=== PATIENT | female | born 1980 | race Caucasian/White ===

== ENCOUNTER 2022-09-20 14:39 | Outpatient (CLI) | payer OTHER ==
--- NOTE | 2022-09-20 16:41 | SLEEP CARE CONSULTATION ---
Information from patient questionnaire entered by Shadi Roman. I have reviewed and concur with the information entered by Shadi Roman. This document represents the service I personally performed and the decisions made by me, Juan Jose Vora MD, [facility]. History of Present Illness Service Date and Time: 09/20/2022 1439 Reason for Visit: New patient Chief Complaint: reports: Insomnia, Snoring, Frequent awakenings at night Usual bedtime: 1130PM Time it takes to fall asleep: 30-90MIN Snores at night: Yes Observed to quit breathing while asleep: No Sleeps alone due to snoring: Yes Number of times waking at night: 2-3 Reasons for waking at night: reports: Snoring, Bathroom, Other (UNKNOWN) Toss, Turn, or Twitch while sleeping: Yes Recalls having dreams: Yes Usually gets out of bed at: 7-8AM Feels refreshed in the morning: Yes Morning headache: No Sleepy or fatigued during the day: No Ever fallen asleep while driving: No Takes day naps: No Dreams during day naps: No Prior sleep studies: No Additional HPI information: I have the pleasure of seeing Ms. Campbell today regarding the possibility of her having obstructive sleep apnea. As you know, she is a 41-year-old lady who complains of insomnia almost all her adult life. She has difficulty falling asleep at the beginning of the night and also with waking up during the night. Her medications has been changed many times. Presently, she is taking doxepin and amitriptyline. She said they do not help much. She added melatonin on her own. She said temazepam worked best in the past. She has alprazolam that she takes occasionally for anxiety but not for insomnia. One reason she comes in today is because she started snoring very loudly, so loud that her has to sleep in a separate bedroom. The patient tells me that she normally goes to bed around 11:30 pm, and it takes her approximately 30 - 90 minutes to fall asleep. She has never been observed to stop breathing in her sleep. Her has to sleep in a separate room. She can recall waking up on the average of 2 - 3 times during the night. Most of the time she wakes up because of having to use the bathroom and unknown reason. She has awakened occasionally because of her own snoring, but not choking, or having to gasp for air. There is a lot of tossing and turning in her sleep. There is occasional somniloquy (sleep talking) but no somnambulism (sleep walking). Generally, there is no recollection of dreams. In the morning she usually gets up out of the bed around 7 - 8 a.m. not feeling refreshed nor rested. When left up to her, she wakes up at 9 am. She usually does not have a morning headache. During the day she does not feel sleepy and fatigued. She drinks a lot of coffee in the morning. Her score on Maxwell Sleepiness Scale is 0 out of 24. She never has fallen asleep while driving nor has had any accident due to sleepiness. She usually does not take naps during the day. She denies symptoms of restless leg syndrome. She denies having impaired concentration during the day. 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 Patient is and lives in [place]. Have you smoked in the past 12 months: No Alcohol use: Yes Caffeine use: Yes Caffeine amount and frequency: SEVERAL CUPS TRY AND STOP BY NOON Family History Family history of sleep disordered breathing: Yes Family Hx Sleep Apnea: Mother: Snoring, Sleep apnea - Treated, Father: Snoring, Sleep apnea - Treated Allergies and Home Medications Known drug allergies: Yes ([facility]) Drug allergies reviewed: Yes Home medication list reviewed: Yes Review of Systems Weight loss over past 5 years: 6 Cardiovascular: denies: high blood pressure, palpitations, chest pain, irregular heart rate or pulse, leg or foot swelling, have to sleep sitting up, other Respiratory: denies: shortness of breath, wheeze, sputum production, chronic cough, other Gastrointestinal: denies: heartburn, difficulty swallowing, nausea, vomitting, diarrhea, abdominal pain, other Urinary: denies: incontinence, frequency, urgency, impotence, other Neurological: denies: headaches, seizure, head trauma, disorientation, speech dysfunction, gait or balance problems, fainting or unconsciousness, other Psychiatric: reports: anxiety Ear/Nose/Throat: reports: nasal congestion, sinus problems Endocrine: denies: thyroid disease, history of goiter, sluggishness, too hot or cold, excessive thirst, increased appetite, increased urination, unexplained weakness, other Musculoskeletal: denies: joint pain, neck pain, back pain, joint swelling, muscle pain or cramping, mobility problems, other Immunologic: reports: sneezing Physical Exam Vital signs obtained and entered by: SHADI Justice MA Blood Pressure: 98/58 (LEFT ARM) Cuff size: regular Heart Rate: 75 O2 Saturation: 98 Height: 5 ft 5 in Weight: 187 lb 12.8 oz Body Mass Index: 31.2 BMI Classification: Obese Neck circumference: 14.5 Mood/affect: Normal HEENT: No craniofacial malformation Nostrils: patent to airflow Turbinates: normal Septum: midline Mouth and throat: narrow oropharynx Soft palate: long Hard palate: normal Uvula: normal Uvula visualization: 50% Mallampati Class II Tongue: normal in size Tonsils: small Chin and jaw: normal size and position Neck: normal w/o lymphadenopathy or thyromegaly Heart: regular rate and rhythm Lungs: clear bilaterally Extremities: no edema or clubbing Neurologic: intact Impression and Plan IMPRESSION: 1. Suspected sleep apnea, as evident by history of loud and irregular snoring, frequent awakenings during the night, and unrefreshed sleep. Narrow oropharynx and obesity are common predisposing factors for obstructive sleep apnea-hypopnea syndrome. I recommend proceeding to polysomnography to confirm the diagnosis and to assess severity. I informed the patient of what the sleep studies involve and after some discussion, she agreed to proceed. However, because her insurance is [employer] which generally does not authorize the standard in-laboratory polysomnography, a home sleep apnea test (HSAT) will be ordered. 2. 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 She complains of not being able to fall asleep when everybody else goes to sleep but then gets up significantly later than them. To help her fall asleep at the beginning of the night, I instructed her to keep her wakeup time at 7 am every day. She should set her alarm at that time. Plan: 1. Schedule a home sleep apnea test (HSAT) 2. Maintain a regular wake up time and spend no more than 7.5 hours in bed at night. Avoid naps. 3. Continue with all her meds for now. 4. Return for a follow-up after the test. Counseling Topics: Weight control Follow up with Sleep Care in: 1-2 months Plan: in-lab pSG Visit Type: In Office Time Spent with Patient (minutes): 15 Provider Statement: I spent 100% of the Face to Face Visit with the patient with greater than 50% spent counseling the patient and coordination of care.
[2022-09-20 16:44] VITALS: BP 98/58
== END 2022-09-20 14:40 | disposition home or self-care (01) ==
LOC: SC 14:39
PROVIDERS: ATTEND Internal Medicine Pulmonary Disease
DX: R53.83 Other fatigue (principal); G47.8 Other sleep disorders; R06.83 Snoring; E66.9 Obesity, unspecified; Z68.31 Body mass index [BMI] 31.0-31.9, adult
CPT/HCPCS: 99202; 99212

== ENCOUNTER 2022-11-18 12:50 | Outpatient (CLI) | payer OTHER | END 2022-11-18 12:51 | disposition home or self-care (01) | LOC: SC 12:50 | PROVIDERS: ATTEND Internal Medicine Pulmonary Disease | DX: R53.83 Other fatigue (principal); G47.8 Other sleep disorders; R06.83 Snoring; E66.9 Obesity, unspecified; Z68.31 Body mass index [BMI] 31.0-31.9, adult | CPT/HCPCS: 95806 ==

== ENCOUNTER 2022-12-20 15:00 | Outpatient (CLI) | payer OTHER ==
--- NOTE | 2022-12-22 09:09 | SLEEP CARE CONSULTATION ---
Information from patient questionnaire entered by Shadi Roman. I have reviewed and concur with the information entered by Shadi Roman. This document represents the service I personally performed and the decisions made by me, Juan Jose Vora MD, [facility]. History of Present Illness Service Date and Time: 12/20/2022 1500 Initial [place] Sleepiness Scale score: 0 (09/20/22) Current [place] Sleepiness Scale score: 2 (12/20/22) Additional HPI information: Ms. Campbell was seen via videotelemed to go over her home sleep apnea test (HSAT) recently performed. The test showed No significant sleep disordered breathing or hypoxemia. She slept on her back about two-third of the night. She continues to complain of sleep onset insomnia and snore. Sleep Study - Results Type of Sleep Study: Home sleep study (COMPLETED ON 11/18/22) Prior sleep studies: No Allergies and Home Medications Drug allergies reviewed: Yes Home medication list reviewed: Yes Allergy and home medication list: Allergies Penicillins Allergy (Verified 12/17/22 16:40) Review of Systems Review of systems same as previous: Yes Physical Exam Vital signs obtained and entered by: SHADI Justice MA Height: 5 ft 5 in (PER PT) Weight: 180 lb (PER PT) Body Mass Index: 29.9 BMI Classification: Overweight Impression and Plan IMPRESSION: 1. Primary Snore (ICD-10 R06.83), light to loud, but no significant sleep disordered breathing except when the patient slept supine. The patient is recommended to avoid sleeping supine. Treatment for snore includes oral appliance therapy and upper airway surgery. 2. Insomnia life long, probably due to mild delayed sleep phase syndrome. She complains of not being able to fall asleep when everybody else goes to sleep but then gets up significantly later than them. To help her fall asleep at the beginning of the night, I instructed her to keep her wakeup time no later than 7 am every day, especially on her days off. She should set her alarm at that time. PLAN: 1. Maintain a regular wake up time and spend no more than 8 hours in bed at night. Avoid naps. 2. Return for a follow up on as needed basis. Follow up with Sleep Care in: as needed Visit Type: Telehealth Video Video Type: [facility] Patient agrees and consents to this telehealth visit type: Yes Patient agrees to have their insurance billed: Yes Time Spent with Patient (minutes): 15 Provider Statement: I spent 100% of the Telehealth Video Call with the patient with greater than 50% spent counseling the patient and coordination of care.
== END 2022-12-20 15:01 | disposition home or self-care (01) ==
LOC: SC 15:00
PROVIDERS: ATTEND Internal Medicine Pulmonary Disease
DX: R06.83 Snoring (principal); G47.00 Insomnia, unspecified; E66.3 Overweight; Z68.29 Body mass index [BMI] 29.0-29.9, adult

== ENCOUNTER 2024-01-16 10:23 | Outpatient (CLI) | payer BC | END 2024-01-16 23:59 | disposition critical access hospital (66) | LOC: EMS 10:23 | DX: R20.2 Paresthesia of skin (principal); H53.8 Other visual disturbances; F41.9 Anxiety disorder, unspecified | CPT/HCPCS: A0425; A0429 ==

== ENCOUNTER 2024-01-16 10:39 | Emergency (ER) | payer BC, OTHER ==
--- NOTE | 2024-01-16 10:52 | ED Physician Documentation ---
History of Present Illness - Stated complaint Stated Complaint: BILAT ARM NUMBNESS - Chief complaint Chief Complaint: General - History obtained from History obtained from: Patient, Family, EMS - Additonal information Additional information: After her trip to [facility] last April she developed vertigo. She has severe vertigo whenever she flies and after that trip the vertigo was persistent and she ended up going to the ENT several times and having a left TM tube placed which was subsequently removed because it did not help. She also had a normal MRI of her brain. Tuesday she had up episode where she was standing up and reached over her head and she feels like she blacked out but did not lose postural tone and awoke still in a standing position in the same place. Since then she has had "brain fog" and today developed a sensation of not getting enough oxygen and extremity numbness in all [address] to work. Subsequently she developed blurry tunnel vision. Now she feels better. No associated headache, chest pain. She does not think this is anxiety. She does take an antidepressant, but has been compliant without missed doses. No possibility of . PD PAST MEDICAL HISTORY - Past Medical History Past Medical History: Yes Psych: Depression, Anxiety - Present Medications Home Medications: Ambulatory Orders Medication Instructions Recorded Confirmed ALPRAZolam [Alprazolam] 0.5 mg ORAL Q8HR PRN 09/20/22 01/16/24 Amitriptyline [Elavil] 25 mg ORAL HS 09/20/22 01/16/24 Fluoxetine HCl [Prozac] 20 mg ORAL DAILY 09/20/22 01/16/24 Melatonin 5 mg ORAL HS 09/20/22 01/16/24 Multivitamin 1 tab ORAL DAILY 09/20/22 01/16/24 Elderberry Fruit [Elderberry] 350 mg PO DAILY 01/16/24 01/16/24 Magnesium Oxide 400 mg PO DAILY 01/16/24 01/16/24 Tirzepatide [Zepbound] 50 mg SQ Q7D 01/16/24 01/16/24 - Allergies Allergies/Adverse Reactions: Allergies Allergy/AdvReac Type Severity Reaction Status Date / Time Penicillins Allergy Unknown Verified 01/16/24 10:43 - Social History Does the pt smoke?: No Smoking Status: Never smoker PD ED PE NORMAL - Vitals Vital signs reviewed: Yes - General General: Alert and oriented X 3, No acute distress - HEENT HEENT: PERRL, EOMI, Pharynx benign, Other (Normal TMs, no PE tube in place.) - Neck Neck: Supple, no meningeal sign, No bony TTP - Cardiac Cardiac: RRR, No murmur - Respiratory Respiratory: No respiratory distress, Clear bilaterally - Abdomen Abdomen: Non tender - Neuro Neuro: Alert and oriented X 3, 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 Relevant findings are: Rate: Rate (enter#) (71) Rhythm: NSR [place]: Normal Intervals: Normal GA QRS: Normal Ischemia: Normal ST segments - Labs Labs: Laboratory Tests 01/16/24 01/16/24 01/16/24 10:39 10:58 10:58 WBC 3.7 L RBC 4.35 Hgb 12.9 Hct 39.3 MCV 90.3 MCH 29.7 MCHC 32.8 RDW 11.8 L Plt Count 208 MPV 11.4 H Neut # (Auto) 2.1 Lymph # (Auto) 1.3 L Carter # (Auto) 0.2 Eos # (Auto) 0.1 Baso # (Auto) 0.0 Absolute Nucleated RBC 0.00 Nucleated RBC % 0.0 VBG pH VBG pCO2 VBG pO2 VBG HCO3 VBG Total CO2 VBG O2 Saturation VBG Base Excess Sodium 137 Potassium 4.0 Chloride 104 Carbon Dioxide 27 Anion Gap 6.0 BUN 11 Creatinine 0.8 Estimated GFR (MDRD) 78 L Glucose 92 Calcium 9.6 Magnesium 1.7 Total Bilirubin 0.6 AST 23 ALT 29 Alkaline Phosphatase 36 L Total Protein 6.8 Albumin 4.5 Globulin 2.3 Albumin/Globulin Ratio 2.0 Urine Color YELLOW Urine Clarity CLEAR Urine pH 6.5 Ur Specific [place] <=1.005 Urine Protein NEGATIVE Urine Glucose (UA) NEGATIVE Urine Ketones NEGATIVE Urine Occult Blood NEGATIVE Urine Nitrite NEGATIVE Urine Bilirubin NEGATIVE Urine Urobilinogen 0.2 (NORMAL) Ur Leukocyte Esterase NEGATIVE Ur Microscopic Review NOT INDICATED Urine Culture Comments NOT INDICATED Urine HCG, Qual NEGATIVE Nasal Adenovirus (PCR) Nasal B. parapertussis DNA (PCR) Nasal Coronavir 229E PCR Nasal Coronavir HKU1 PCR Nasal Coronavir NL63 PCR Nasal Coronavir OC43 PCR Nasal Enterovir/Rhinovir PCR Nasal Influenza B PCR Nasal Influenza A PCR Nasal Parainfluen 1 PCR Nasal Parainfluen 2 PCR Nasal Parainfluen 3 PCR Nasal Parainfluen 4 PCR Nasal RSV (PCR) Nasal B.pertussis DNA PCR Nasal C.pneumoniae (PCR) Tor Human Metapneumo PCR Nasal M.pneumoniae (PCR) Nasal SARS-CoV-2 (PCR) Urine Opiates Screen NEGATIVE Ur Buprenorphine Scrn NEGATIVE Ur Oxycodone Screen NEGATIVE Urine Methadone Screen NEGATIVE Ur Barbiturates Screen NEGATIVE Ur Tricyclics Screen NEGATIVE Ur Phencyclidine Scrn NEGATIVE Ur Amphetamine Screen NEGATIVE U Methamphetamines Scrn NEGATIVE U Benzodiazepines Scrn NEGATIVE Urine Cocaine Screen NEGATIVE U Cannabinoids Screen NEGATIVE Ur Drug Screen Comment CUTOFF CONC BELOW: 01/16/24 01/16/24 10:58 11:25 WBC RBC Hgb Hct MCV MCH MCHC RDW Plt Count MPV Neut # (Auto) Lymph # (Auto) Carter # (Auto) Eos # (Auto) Baso # (Auto) Absolute Nucleated RBC Nucleated RBC % VBG pH 7.411 H VBG pCO2 41.4 VBG pO2 25.7 VBG HCO3 25.7 VBG Total CO2 27.0 VBG O2 Saturation 47.9 L VBG Base Excess 1.0 Sodium Potassium Chloride Carbon Dioxide Anion Gap BUN Creatinine Estimated GFR (MDRD) Glucose Calcium Magnesium Total Bilirubin AST ALT Alkaline Phosphatase Total Protein Albumin Globulin Albumin/Globulin Ratio Urine Color Urine Clarity Urine pH Ur Specific [place] Urine Protein Urine Glucose (UA) Urine Ketones Urine Occult Blood Urine Nitrite Urine Bilirubin Urine Urobilinogen Ur Leukocyte Esterase Ur Microscopic Review Urine Culture Comments Urine HCG, Qual Nasal Adenovirus (PCR) NOT DETECTED Nasal B. parapertussis DNA (PCR) NOT DETECTED Nasal Coronavir 229E PCR NOT DETECTED Nasal Coronavir HKU1 PCR NOT DETECTED Nasal Coronavir NL63 PCR NOT DETECTED Nasal Coronavir OC43 PCR NOT DETECTED Nasal Enterovir/Rhinovir PCR NOT DETECTED Nasal Influenza B PCR NOT DETECTED Nasal Influenza A PCR NOT DETECTED Nasal Parainfluen 1 PCR NOT DETECTED Nasal Parainfluen 2 PCR NOT DETECTED Nasal Parainfluen 3 PCR NOT DETECTED Nasal Parainfluen 4 PCR NOT DETECTED Nasal RSV (PCR) NOT DETECTED Nasal B.pertussis DNA PCR NOT DETECTED Nasal C.pneumoniae (PCR) NOT DETECTED Tor Human Metapneumo PCR NOT DETECTED Nasal M.pneumoniae (PCR) NOT DETECTED Nasal SARS-CoV-2 (PCR) NOT DETECTED Urine Opiates Screen Ur Buprenorphine Scrn Ur Oxycodone Screen Urine Methadone Screen Ur Barbiturates Screen Ur Tricyclics Screen Ur Phencyclidine Scrn Ur Amphetamine Screen U Methamphetamines Scrn U Benzodiazepines Scrn Urine Cocaine Screen U Cannabinoids Screen Ur Drug Screen Comment PD Medical Decision Making - ED course ED course: She presents with an episode that sounded like syncope the other day but did not lose postural tone and has had "brain fog" since then with an episode of tunnel vision and blurry vision with all 4 extremity numbness today. This sounds mostly like anxiety but she does not think it is. Alternatively would consider a low flow state but her blood pressure and vital signs are normal now with normal EKG. Primary neurologic issue is less likely given bilateral symptoms and MRI earlier this year that per her was normal. Subsequently testing demonstrated modest lymphopenia. She does not particularly have any viral symptoms such as body aches or shaking chills but is agreeable to PCR testing. Otherwise CBC, urinalysis, toxicology testing were negative. She has a pending neurology referral which should be complete next month, and she is frustrated by the lack of answers which I empathized with. That said no apparent emergency medical condition is present. Departure - Departure Disposition: Home, Self Care Condition: Good Record reviewed to determine appropriate education?: Yes Follow-Up: Deepa Cody ARNP [Primary Care Provider] - Comments: The respiratory PCR is pending on discharge. This checks for a number of respiratory issues such as COVID, flu. I will call you if any of them are positive. We did this because the only specific abnormal diagnostic test was your white count which was slightly low which is often seen with viral illnesses. Regardless that should get checked again in a week or 2 with consideration for hematology referral if it remains abnormal. You have the pending neurology consult which is appropriate and I would also recommend that you follow-up with your primary care PA with consideration for an outpatient echocardiogram given your symptomatology. The remainder of your blood work which included CBC, blood gas, chemistry panels, urinalysis and test were all normal/negative. Forms: PCP List Discharge Date/Time: 01/16/24 12:37
[2024-01-16 11:00] LABS: BILIRUBIN,URINE NEGATIVE (NEGATIVE); GLUCOSE, URINE (UA) NEGATIVE (NEGATIVE); KETONES,URINE (UA) NEGATIVE (NEGATIVE); LEUKOCYTE ESTERASE, URINE NEGATIVE (NEGATIVE); NITRITE,URINE NEGATIVE (NEGATIVE); OCCULT BLOOD,URINE NEGATIVE (NEGATIVE); PH,URINE 6.5 PH (5.0-7.5); PROTEIN,URINE NEGATIVE (NEGATIVE); UROBILINOGEN,URINE 0.2 (NORMAL) E.U./dL (NORMAL)
[2024-01-16 11:01] LABS: CLARITY,URINE CLEAR (CLEAR); HCG UR QUAL NEGATIVE
[2024-01-16 11:04] LABS: VBG HCO3 25.7 mmol/L (23-28); VBG PCO2 41.4 mmHg (41-51); VBG PH 7.411 (7.31-7.41); VBG PO2 25.7 mmHg (25-47)
[2024-01-16 11:05] LABS: BASOPHILS % (AUTO) 0.8 %; EOSINOPHILS # (AUTO) 0.1 10^3/uL (0.0-0.7); EOSINOPHILS % (AUTO) 2.4 %; HCT - HEMATOCRIT 39.3 % (37.0-47.0); HGB - HEMOGLOBIN 12.9 g/dL (12.0-16.0); LYMPHOCYTES # (AUTO) 1.3 10^3/uL (1.5-3.5); LYMPHOCYTES % (AUTO) 35.8 %; MEAN CORPUSCULAR HEMOGLOBIN 29.7 pg (27.0-31.0); MEAN CORPUSCULAR HGB CONC 32.8 g/dL (32.0-36.0); MEAN CORPUSCULAR VOLUME 90.3 fL (81.0-99.0); MEAN PLATELET VOLUME 11.4 fL (7.9-10.8); MONOCYTES # (AUTO) 0.2 10^3/uL (0.0-1.0); MONOCYTES % (AUTO) 5.6 %; NEUTROPHILS # (AUTO) 2.1 10^3/uL (1.5-6.6); NEUTROPHILS % (AUTO) 55.4 %; PLT - PLATELET COUNT 208 10^3/uL (130-450); RED BLOOD COUNT 4.35 10^6/uL (4.20-5.40); RED CELL DISTRIBUTION WIDTH 11.8 % (12.0-15.0); VBG OXYGEN SATURATION 47.9 % (60-80); WHITE BLOOD COUNT 3.7 x10^3/uL (4.8-10.8)
[2024-01-16 11:09] LABS: AMPHETAMINE SCREEN,URINE NEGATIVE (NEGATIVE); BARBITURATE SCREEN,UR NEGATIVE (NEGATIVE); BENZODIAZEPINES SCREEN, URINE NEGATIVE (NEGATIVE); BUPRENORPHINE SCREEN, URINE NEGATIVE (NEGATIVE); COCAINE SCREEN URINE NEGATIVE (NEGATIVE); METHADONE SCREEN, URINE NEGATIVE (NEGATIVE); METHAMPHETAMINES SCREEN, URINE NEGATIVE (NEGATIVE); OPIATE SCREEN, URINE NEGATIVE (NEGATIVE); OXYCODONE SCREEN, URINE NEGATIVE (NEGATIVE); THC CANNABINOID SCREEN, URINE NEGATIVE (NEGATIVE); TRICYCLIC ANTIDEPRESSANT,URINE NEGATIVE (NEGATIVE)
[2024-01-16 11:18] VITALS: O2SAT 100
[2024-01-16 11:22] LABS: ALBUMIN 4.5 g/dL (3.2-5.5); BILIRUBIN,TOTAL 0.6 mg/dL (0.2-1.0); CALCIUM 9.6 mg/dL (8.5-10.3); CREATININE 0.8 mg/dL (0.6-1.3); MAGNESIUM 1.7 mg/dL (1.7-2.3); TOTAL PROTEIN 6.8 g/dL (6.4-8.9)
[2024-01-16 12:38] LABS: B. PARAPERTUSSIS- RESP PCR PAN NOT DETECTED; B. PERTUSSIS- RESP PCR PANEL NOT DETECTED; C. PNEUMONIAE- RESP PCR PANEL NOT DETECTED; CORONAVIRUS 229E-RESP PCR NOT DETECTED; CORONAVIRUS HKU1-RESP PCR NOT DETECTED; CORONAVIRUS NL63-RESP PCR NOT DETECTED; CORONAVIRUS OC43-RESP PCR NOT DETECTED; HUMAN METAPNEUMOVIRUS NOT DETECTED; INFLUENZA A- RESP PCR PANEL NOT DETECTED; INFLUENZA B - RESP PCR PANEL NOT DETECTED; M. PNEUMONIAE- RESP PCR PANEL NOT DETECTED; PARAINFLUENZA VIRUS 1 NOT DETECTED; PARAINFLUENZA VIRUS 2 NOT DETECTED; PARAINFLUENZA VIRUS 3 NOT DETECTED; PARAINFLUENZA VIRUS 4 NOT DETECTED; RHINOVIRUS/ENTEROVIRUS NOT DETECTED; RSV- RESP PCR PANEL NOT DETECTED; SARS-CoV-2 -RESP PCR PANEL NOT DETECTED
[2024-01-16 12:45] VITALS: BP 115/72
== END 2024-01-16 12:37 | disposition home or self-care (01) ==
LOC: EDUNIT# → ED 10:39
DX: R20.0 Anesthesia of skin (principal); H53.8 Other visual disturbances; D72.810 Lymphocytopenia
CPT/HCPCS: 36415; 80053; 80306; 81001; 81003; 81025; 82803; 83735; 85025; 87086; 87633; 93005; 99283; 99284